=== PATIENT | male | born 1940 | race American Indian/Alaskan Native ===

== ENCOUNTER 2017-11-17 20:51 | Emergency (ER) | payer MEDICARE ==
[2017-11-17] MEDS ORDERED: TORADOL ONE (21:37)
[2017-11-17] MEDS ORDERED: TORADOL IM ONE (21:51)
[2017-11-17 22:00] LABS: Hematocrit 33.6 % (35.5-45.6); Hemoglobin 11.4 gm/dl (11.8-15.2); Mean Corpuscular HGB Conc 34 % (32-34); Mean Corpuscular Hemoglobin 29 pg (28-32); Mean Corpuscular Volume 86 fl (84-94); Red Blood Count 3.92 M/mm3 (3.65-5.03); Red Cell Distribution Width 14.5 % (13.2-15.2)
[2017-11-17 22:04] LABS: Platelet Count 222 K/mm3 (140-440)
[2017-11-17 22:17] LABS: Albumin 4.7 g/dL (3.9-5); Calcium 9.9 mg/dL (8.4-10.2)
[2017-11-17 22:35] LABS: Band Neutrophils # (Manual) 0.1 K/mm3; Basophils % (Manual) 0 % (0.0-1.8); Total Cells Counted 100
[2017-11-17 22:36] LABS: Ovalocytes 1+; Poikilocytosis 2+; Schistocytes 1+
--- NOTE | 2017-11-17 22:50 | XRay Report ---
FINAL REPORT PROCEDURE: Right shoulder. TECHNIQUE: Two views. HISTORY: Right shoulder pain. COMPARISON: No prior studies are available for comparison. FINDINGS: The two views are not orthogonal views. The bones appear intact without fracture or dislocation. The joint spaces appear satisfactory. The soft tissues are unremarkable. IMPRESSION: Limited study. No significant abnormality.
[2017-11-18] MEDS ORDERED: PERCOCET 5/325 PO ONE (01:22)
--- NOTE | 2017-11-18 01:29 | Emergency Department Report ---
ED Upper Extremity Inj HPI - General Chief Complaint: Shoulder Injury Stated Complaint: R SHOULDER PAIN Time Seen by Provider: 11/18/17 00:40 Source: patient Mode of arrival: Ambulatory Limitations: No Limitations - History of Present Illness Initial Comments: 77-year-old male with multiple chronic medical conditions (see triage and . He's presented to the hospital with complaints of severe right shoulder pain onset at 5 PM. No injury reported. Patient denies fall. No history of chronic shoulder pain. Patient denies fever. Disinterested in intensity, constant, worse on movement and palpation. Not alleviated with over- the-counter Tylenol arthritis. Patient denies chest pain or shortness of breath. PT is right hand dominant - Related Data Home Medications Medication Instructions Recorded Confirmed Last Taken Acetaminophen [Tylenol Arthritis] 650 mg PO Q8HR PRN 11/18/17 11/18/17 Unknown Aspirin [Lo-Dose Aspirin EC] 81 mg PO DAILY 11/18/17 11/18/17 Unknown Clopidogrel [Plavix] 75 mg PO BID 11/18/17 11/18/17 Unknown Cyanocobalamin [Vitamin B-12] 1,000 mcg IM QMONTH 11/18/17 11/18/17 Unknown Sacubitril/Valsartan [Entresto 49 1 each PO BID 11/18/17 11/18/17 Unknown mg-51 mg Tablet] Previous Rx's Medication Instructions Recorded Last Taken Type HYDROcodone/APAP 5-325 [Shiloh 1 each PO Q6HR PRN #20 tablet 11/18/17 Unknown Rx 5/325] Ibuprofen [Motrin] 600 mg PO Q8H PRN #30 tablet 11/18/17 Unknown Rx Allergies Allergy/AdvReac Type Severity Reaction Status Date / Time No Known Allergies Allergy Verified 11/17/17 21:45 ED Review of Systems ROS: Stated complaint: R SHOULDER PAIN Other details as noted in HPI Comment: All other systems reviewed and negative ED Past Medical Hx - Past Medical History Hx Hypertension: Yes Hx Heart Attack/AMI: Yes (X3) Hx Arthritis: Yes Additional medical history: Cardiomyopathy, Angina, Aorta Anyrusyms, 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 - Surgical History Past Surgical History?: Yes Additional Surgical History: Hernia Repair, Femoral Arteries Anyurysms - Social History Smoking Status: Never Smoker Substance Use Type: None - Medications Home Medications: Home Medications Medication Instructions Recorded Confirmed Last Taken Type Acetaminophen [Tylenol Arthritis] 650 mg PO Q8HR PRN 11/18/17 11/18/17 Unknown History Aspirin [Lo-Dose Aspirin EC] 81 mg PO DAILY 11/18/17 11/18/17 Unknown History Clopidogrel [Plavix] 75 mg PO BID 11/18/17 11/18/17 Unknown History Cyanocobalamin [Vitamin B-12] 1,000 mcg IM QMONTH 11/18/17 11/18/17 Unknown History HYDROcodone/APAP 5-325 [Shiloh 1 each PO Q6HR PRN #20 tablet 11/18/17 Unknown Rx 5/325] Ibuprofen [Motrin] 600 mg PO Q8H PRN #30 tablet 11/18/17 Unknown Rx Sacubitril/Valsartan [Entresto 49 1 each PO BID 11/18/17 11/18/17 Unknown History mg-51 mg Tablet] ED Physical Exam - General Limitations: No Limitations - Other Other exam information: General: No limitations, patient is alert in no acute distress Head exam: Atraumatic, normocephalic Eyes exam: Normal appearance, ENT: Moist mucous membrane, normal oropharynx Neck exam: Normal inspection, full range of motion, no meningismus nontender Respiratory exam: Clear to auscultation bilateral, no wheezes, rales, crackles Cardiovascular: Normal rate and rhythm, normal heart sounds Abdomen: Soft, nondistended, and nontender, with normal bowel sounds, no rebound, or guarding Extremity: Right shoulder: Mild tenderness to diffuse shoulder. Movement painful with external rotation and abduction. 2+ radial pulse and no handgrip. No warmth or erythema Back: Normal Inspection, full range of motion, no tenderness Neurologic: Alert, oriented x3, cranial nerves intact, no motor or sensory deficit Psychiatric: normal affect, normal mood Skin: Warm, dry, intact ED Course Vital Signs 11/17/17 11/17/17 11/18/17 21:19 23:59 00:01 Temperature 97.8 F Pulse Rate 81 65 61 Respiratory 18 11 L 13 Rate Blood Pressure 174/94 176/93 Blood Pressure [Left] O2 Sat by Pulse 98 Oximetry 11/18/17 11/18/17 11/18/17 00:08 00:30 01:00 Temperature 98.6 F Pulse Rate 62 73 Respiratory 12 10 L 12 Rate Blood Pressure 179/101 176/109 Blood Pressure 176/93 [Left] O2 Sat by Pulse Oximetry 11/18/17 11/18/17 11/18/17 01:30 01:37 02:00 Temperature Pulse Rate 73 76 96 H Respiratory 15 15 12 Rate Blood Pressure 189/120 176/109 154/105 Blood Pressure [Left] O2 Sat by Pulse Oximetry ED Medical Decision Making - Lab Data Result diagrams: 11/17/17 21:51 11/17/17 21:51 Lab Results 11/17/17 11/17/17 11/17/17 Range/Units 21:51 21:51 21:53 WBC 9.0 (4.5-11.0) K/mm3 RBC 3.92 (3.65-5.03) M/mm3 Hgb 11.4 L (11.8-15.2) gm/dl Hct 33.6 L (35.5-45.6) % MCV 86 (84-94) fl MCH 29 (28-32) pg MCHC 34 (32-34) % RDW 14.5 (13.2-15.2) % Plt Count 222 (140-440) K/mm3 Add Manual Diff Complete Total Counted 100 Seg Neuts % (Manual) 83.0 H (40.0-70.0) % Band Neutrophils % 1.0 % Lymphocytes % (Manual) 10.0 L (13.4-35.0) % Reactive Lymphs % (Man) 0 % Monocytes % (Manual) 3.0 (0.0-7.3) % Eosinophils % (Manual) 3.0 (0.0-4.3) % Basophils % (Manual) 0 (0.0-1.8) % Metamyelocytes % 0 % Myelocytes % 0 % Promyelocytes % 0 % Blast Cells % 0 % Nucleated RBC % Not Reportable Seg Neutrophils # Man 7.5 (1.8-7.7) K/mm3 Band Neutrophils # 0.1 K/mm3 Lymphocytes # (Manual) 0.9 L (1.2-5.4) K/mm3 Abs React Lymphs (Man) 0.0 K/mm3 Monocytes # (Manual) 0.3 (0.0-0.8) K/mm3 Eosinophils # (Manual) 0.3 (0.0-0.4) K/mm3 Basophils # (Manual) 0.0 (0.0-0.1) K/mm3 Metamyelocytes # 0.0 K/mm3 Myelocytes # 0.0 K/mm3 Promyelocytes # 0.0 K/mm3 Blast Cells # 0.0 K/mm3 WBC Morphology Not Reportable Hypersegmented Neuts Not Reportable Hyposegmented Neuts Not Reportable Hypogranular Neuts Not Reportable Smudge Cells Not Reportable Toxic Granulation Not Reportable Toxic Vacuolation Not Reportable Dohle Bodies Not Reportable Pelger-Huet Anomaly Not Reportable Hector Rods Not Reportable Platelet Estimate Appears normal Clumped Platelets Not Reportable Plt Clumps, EDTA Not Reportable Large Platelets Not Reportable Giant Platelets Not Reportable Platelet Satelliting Not Reportable Plt Morphology Comment Not Reportable RBC Morphology Not Reportable Dimorphic RBCs Not Reportable Polychromasia Not Reportable Hypochromasia Not Reportable Poikilocytosis 2+ Anisocytosis Not Reportable Microcytosis Not Reportable Macrocytosis Not Reportable Spherocytes Not Reportable Pappenheimer Bodies Not Reportable Sickle Cells Not Reportable Target Cells Not Reportable Tear Drop Cells Not Reportable Ovalocytes 1+ Helmet Cells Not Reportable Whitney-[place] Bodies Not Reportable [place] Rings Not Reportable [place] Cells Not Reportable Bite Cells Not Reportable Crenated Cell Not Reportable Elliptocytes Not Reportable Acanthocytes (Spur) Not Reportable Rouleaux Not Reportable Hemoglobin C Crystals Not Reportable Schistocytes 1+ Malaria parasites Not Reportable Darren Bodies Not Reportable Hem Pathologist Commnt No Sodium 134 L (137-145) mmol/L Potassium 4.2 (3.6-5.0) mmol/L Chloride 96.0 L (98-107) mmol/L Carbon Dioxide 18 L (22-30) mmol/L Anion Gap 24 mmol/L BUN 28 H (9-20) mg/dL Creatinine 1.5 (0.8-1.5) mg/dL Estimated GFR 45 ml/min BUN/Creatinine Ratio 19 % Glucose 100 (75-100) mg/dL Calcium 9.9 (8.4-10.2) mg/dL Total Bilirubin 0.40 (0.1-1.2) mg/dL AST 20 (5-40) units/L ALT 8 (7-56) units/L Alkaline Phosphatase 79 (35-129) units/L Troponin T < 0.010 (0.00-0.029) ng/mL Total Protein 7.9 (6.3-8.2) g/dL Albumin 4.7 (3.9-5) g/dL Albumin/Globulin Ratio 1.5 % - Radiology Data Radiology results: report reviewed FINAL REPORT PROCEDURE: Right shoulder. TECHNIQUE: Two views. HISTORY: Right shoulder pain. COMPARISON: No prior studies are available for comparison. FINDINGS: The two views are not orthogonal views. The bones appear intact without fracture or dislocation. The joint spaces appear satisfactory. The soft tissues are unremarkable. IMPRESSION: Limited study. No significant abnormality. FINAL REPORT EXAM: XR SHOULDER 2+V RT HISTORY: Shoulder pain TECHNIQUE: Three views of the right shoulder were obtained. FINDINGS: There is osteoporosis. There calcific spurring along greater tuberosity of the humeral head. 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 The subacromial space appears normal. There is no evidence of fracture. IMPRESSION: Calcification at the level of the greater tuberosity compatible with calcific tendinitis. Mild AC joint arthrosis. - Medical Decision Making Patient has calcific tendinitis on x-ray with associated decreased range of motion and pain. Pain improved after Toradol and Percocet in the ED. Sling will be provided for support but ultimately patient need to follow up with orthopedics for treatment of possible frozen shoulder. No signs of infection, dislocation or fracture at this time. further views of shoulder were obtained after pain more controlled after percocet - Differential Diagnosis bursitis, arthritis, frozen shoulder, tendinitis Critical Care Time: No Critical care attestation.: If time is entered above; I have spent that time in minutes in the direct care of this critically ill patient, excluding procedure time. ED Disposition Clinical Impression: Calcific tendinitis of right shoulder Disposition: DC-01 TO HOME OR SELFCARE Is pt being admited?: No Does the pt Need Aspirin: No Condition: Stable Instructions: Calcific Tendinitis (ED) Additional Instructions: Take the medication as prescribed. Wear the sling as needed for comfort and support. Follow with orthopedic doctor for further management. Take the copy of x-ray results to your doctors for follow-up Prescriptions: HYDROcodone/APAP 5-325 [Shiloh 5/325] 1 each PO Q6HR PRN #20 tablet PRN Reason: Pain Ibuprofen [Motrin] 600 mg PO Q8H PRN #30 tablet PRN Reason: Pain Referrals: PRIMARY CARE, [Primary Care Provider] - 3-5 Days CAT BARRETT MD [Staff Physician] - 3-5 Days (orthopedic doctor) Time of Disposition: 03:50
--- NOTE | 2017-11-18 03:19 | XRay Report ---
FINAL REPORT EXAM: XR SHOULDER 2+V RT HISTORY: Shoulder pain TECHNIQUE: Three views of the right shoulder were obtained. FINDINGS: There is osteoporosis. There calcific spurring along greater tuberosity of the humeral head. 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 The subacromial space appears normal. There is no evidence of fracture. IMPRESSION: Calcification at the level of the greater tuberosity compatible with calcific tendinitis. Mild AC joint arthrosis.
[2017-11-18 04:57] VITALS: BP 146/94
== END 2017-11-18 04:38 | disposition home or self-care (01) ==
LOC: ED 20:51
DX: M75.31 Calcific tendinitis of right shoulder (principal); I10 Essential (primary) hypertension; I25.2 Old myocardial infarction; M19.90 Unspecified osteoarthritis, unspecified site; Z79.82 Long term (current) use of aspirin
CPT/HCPCS: 36415; 73030; 80053; 84484; 85007; 85025; 93005; 93010; 96372; 99284; J1885

== ENCOUNTER 2020-12-07 08:27 | Emergency (ER) | payer MEDICARE ==
[2020-12-07 08:44] VITALS: BP 124/76
== END 2020-12-07 12:10 | disposition left against medical advice (07) ==
LOC: ED 08:27
DX: R58 Hemorrhage, not elsewhere classified (principal); Z53.21 Procedure and treatment not carried out due to patient leaving prior to being seen by health care provider